=== PATIENT | male | born 1950 | race Caucasian/White ===

== ENCOUNTER 2023-01-10 15:54 | Outpatient (CLI) | payer OTHER, SELFPAY ==
--- NOTE | 2023-01-10 06:00 | DI.RAD_ITS ---
Exam(s) XR PAIN CLINIC THORACIC SP 2V EXAM: XR PAIN CLINIC THORACIC SP 2V CLINICAL HISTORY: Dx: Intercostal neuralgia TECHNIQUE: 2D and realtime digital imaging was performed. Radiologist not present. CONTRAST MATERIAL: None. COMPARISON: No exams were available for comparison FINDINGS: Fluoroscopy was provided for pain management therapy. Please refer to procedure report or details. Radiation Exposure Index: Ka,r=7.8 mGy IMPRESSION: As above. RADIATION DOSE DELIVERED:
[2023-01-10 16:07] VITALS: BP 124/71; PULSE 63; RESP 20; TEMP 36.6; O2SAT 96
--- NOTE | 2023-01-10 16:52 | PDOC.PAIN_ITS ---
Date of service: 01/10/23 Time of Service: 16:52 Pain Managment Procedure Note Procedure Note Procedure Note: PROCEDURE NOTE RIGHT INTERCOSTAL NERVE BLOCKS Chief Complaint: RIGHT CHEST pain. Date of Service: January 10, 2023 Patient: Juan José Lorenzo Provider: Osei Guerra DO, MPH Juan José Lorenzo has been referred to the [facility] for a right intercostal nerve block. Pre-operative diagnosis: Intercostal neuralgia Post-operative diagnosis: Same Pre-Procedure Pain: VAS= 5/10 Comments: I previously evaluated the patient in our clinic and their symptoms remain the same as they were at that time. Juan José was interviewed and the medical record reviewed. There were no medical, pharmacologic, radiographic or other structural contraindications to attempting a fluoroscopically-guided intercostal nerve block. The risks, benefits, and potential side effects were reviewed with the patient. The patient appeared to understand, questions were answered to the patient?s satisfaction and the patient agreed to proceed. Once I obtained informed verbal consent, the printed consent form was signed by the patient and myself. A standard time-out procedure was performed. Juan José was placed in the prone position on the fluoroscopy table and automated blood pressure cuff, three lead EKG, and pulse oximeter were applied. The right 12th rib was found to be the painful rib. The skin entry point for entering/approaching the right 12th rib was marked. Following thorough chlorhexadine preparation of the skin and draping, 2 ml of 1% lidocaine was infiltrated into the skin over the entry point and subcutaneous tissues. Under fluoroscopic guidance, a 3.5 22G spinal needle was advanced to the right 12th rib 5 cm lateral to midline. Under AP view, 1 ml of Omnipaque-240 was injected while visualized with fluoroscopy. There was no evidence of intravascular uptake, the nerve sheath was delineated. Next 1 ml of preservative-free Dexamethasone (10 mg/ml) was injected after negative aspi ration. This was followed by 1 ml of preservative-free 1% lidocaine and then 5 cc of 0.5% Bupivacaine. (49 mls of Omnipaque-240 was wasted) There was no unusual discomfort expressed by Juan José. The needle was withdrawn without difficulty. Juan José was observed and was without hemodynamic, neurologic, or allergic reactions.? Fluoroscopic images were digitally archived. Juan José's vital signs were stable throughout the procedure and were as recorded in the docflowsheet by the nursing staff.? If given, dosages of intravenous drugs for anxiolysis and analgesia were documented in MAR. Follow up plans and appointments were discussed with Juan José. Post procedure instruction was given as documented in nursing records and having met discharge criteria Juan José was [facility] the [facility]. COMMENTS: Post-procedure pain: VAS= 2-3/10. Juan José to contact [facility] as needed. If at least 50% improvement in pain and/or function for at least 3 months is achieved, this procedure can be repeated. I personally performed this entire procedure. OSEI GUERRA DO, MPH ABPMR-subspecialty board certification in Pain Medicine [facility]
[2023-01-10 16:55] VITALS: BP 121/60; PULSE 63; RESP 19; O2SAT 98
[2023-01-10] MEDS: Bupivacaine 0.5% Pres-Free 10 ML VIAL IJ (17:00)
[2023-01-10] MEDS: Lidocaine 2% Pres-Free 5 ML VIAL IJ (17:01)
[2023-01-10] MEDS: Omnipaque 240 MG/ML 50 ML BTL IJ (17:01)
[2023-01-10] MEDS: Dexamethasone Sod. Phos./Pres-Free 10 MG/ML VIAL IJ (17:02)
== END 2023-01-10 15:55 | disposition home or self-care (01) ==
LOC: PC 15:57
PROVIDERS: PCP Emergency Medicine; Visit Provider Preventive Medicine Occupational Medicine
DX: G58.8 Other specified mononeuropathies (principal); M54.50 Low back pain, unspecified
CPT/HCPCS: 64420; 72070; Q9967